=== PATIENT | female | born 1955 | race Caucasian/White ===

== ENCOUNTER 2021-05-08 12:42 | Emergency (ER) | payer OTHER, SELFPAY ==
--- NOTE | ~2021-05-08 | CT_ITS ---
EXAMINATION: CT brain wo con, CT cervical spine wo con EXAM DATE: 05/08/2021 14:07 INDICATION: Fall, head injury posteriorly on coffee table. Pain radiating to neck. TECHNIQUE: Spiral CT of the head was performed without contrast. Axial, coronal and sagittal images were reviewed. Spiral CT of the cervical spine was performed without contrast. Axial images were rev iewed. Coronal and sagittal reformatted images were also reviewed. The dose-length product (DLP) fo r this examination was 605.33 (accession [id number]), 330.95 (accession [id number]) mGy-cm. The exposure was tailored according to patient size, and iterative reconstruction (ASIR) was used as additional dose reduction technique. There is no prior study for comparison. FINDINGS: HEAD CT: There is no acute intraparenchymal hemorrhage. No evidence of intraparenchymal brain mass l esion. No evidence of acute infarction. There is no mass effect or midline shift. There is no obstru ctive hydrocephalus suspected. There are no extra-axial collections. There are no acute calvarial f ractures. The orbits are unremarkable. Soft tissue is unremarkable. The visualized sinuses and mas toid air cells are well aerated. Small lipoma adjacent to the right side of the torcula, not a clinic ally significant finding. CERVICAL CT: There is no evidence of acute cervical fracture. The odontoid process is intact. Pre- dens space is normal. Prevertebral soft tissue is normal. There are no soft tissue abnormalities id entified. There is no disc space widening or traumatic vertebral body subluxation suspected. There is mild cervical levoscoliosis. There is incomplete right posterior arch of C1. There is advanced lef t-sided mid cervical facet arthropathy. Mild to moderate reversal normal cervical lordosis. A detail ed level by level evaluation of spondylosis can be added as addendum if requested. IMPRESSION: 1. No acute intracranial findings or cervical fracture. 2. Chronic cervical findings. Reviewed, dictated and finalized at location A. IMPRESSION: 1. No acute intracranial findings or cervical fracture. 2. Chronic cervical findings.
[2021-05-08 12:48] VITALS: BP 179/71; PULSE 71; RESP 18; TEMP 36.4; O2SAT 100
--- NOTE | 2021-05-08 13:39 | ED.GENADULT ---
HPI - General Adult General Chief complaint: Fall Stated complaint: Fall Time Seen by Provider: 05/08/21 12:50 Source: patient Mode of arrival: ambulatory Limitations: no limitations History of Present Illness HPI narrative: Patient is here for evaluation of possible head injury. She was on a two-step stepladder today working at her home when she stepped back and missed the bottom step, fell backwards and hit the edge of a wooden coffee table. She now has mild pain in her posterior right scalp, pain in her right neck and behind her right eye. She denies any LOC, vision changes, she is not dizzy or nauseous. She is not on blood thinners. Related Data Home Medications Medication Instructions Recorded Confirmed metformin 500 mg PO DAILY 05/08/21 propranolol 80 mg PO DAILY 05/08/21 Allergies Allergy/AdvReac Type Severity Reaction Status Date / Time morphine Allergy Rash Verified 05/08/21 12:53 Penicillins Allergy Rash Verified 05/08/21 12:53 Review of Systems Review of Systems: All systems reviewed & are unremarkable except as noted in HPI and below [facility] Social History Social History (Updated 05/08/21 @ 14:43 by Melani Becker PA-C) Smoking status: Never smoker Alcohol intake: current Substance use: never Living arrangements: with family Exam Const: General: healthy appearing, no acute distress and alert Orientation/consciousness: patient oriented x3 HENMT: Head: normal to inspection, No palpable skull fracture present and contusion right occipital Ears: hearing grossly normal bilaterally and TM's normal bilaterally Eyes: Conjunctivae: conjunctivae normal Pupils: Equal, round and reactive pupils present EOM: EOMs intact bilaterally Neck: Neck: normal visual inspection and other (no carotid bruit) Resp: Effort & Inspection: normal respiratory effort Auscultation: clear to auscultation bilaterally Cardio: Rate: regular rate Rhythm: regular rhythm Skin: General skin exam: normal color Extrem: General: normal to inspection Psych: Mental Status: mental status grossly normal Course Vital Signs Vital signs: Vital Signs Temperature 36.4 C 05/08/21 12:48 Pulse Rate 71 05/08/21 12:48 Respiratory Rate 18 05/08/21 12:48 Blood Pressure 179/71 H 05/08/21 12:48 Pulse Oximetry 100 05/08/21 12:48 Temperature 36.4 C 05/08/21 12:48 Pulse Rate 71 05/08/21 12:48 Respiratory Rate 18 05/08/21 12:48 Blood Pressure 179/71 H 05/08/21 12:48 Pulse Oximetry 100 05/08/21 12:48 Medical Decision Making Vital Signs Vital Signs: Vital Signs Temperature 36.4 C 05/08/21 12:48 Pulse Rate 71 05/08/21 12:48 Respiratory Rate 18 05/08/21 12:48 Blood Pressure 179/71 H 05/08/21 12:48 Pulse Oximetry 100 05/08/21 12:48 Temperature 36.4 C 05/08/21 12:48 Pulse Rate 71 05/08/21 12:48 Respiratory Rate 18 05/08/21 12:48 Blood Pressure 179/71 H 05/08/21 12:48 Pulse Oximetry 100 05/08/21 12:48 Discharge Plan Discharge Clinical Impression: Fall (on) (from) other stairs and steps, initial encounter Contusion Qualifiers: Encounter type: initial encounter Contusion area: head Contusion of head detail: scalp Qualified Code(s): S00.03XA - Contusion of scalp, initial encounter Acute whiplash injury Qualifiers: Encounter type: initial encounter Qualified Code(s): S13.4XXA - Sprain of ligaments of cervical spine, initial encounter Patient Disposition: Home, Self-Care Condition: Stable Instructions: Antibiotic Form, Head Injury (ED), Cervical Sprain (ED) Additional Instructions: There is no evidence of bleed or fracture on your CTs. You most likely have a mild case of whiplash and a mild concussion. Recommend brain rest i.e. limited screen time and reading. Rest if you begin to headache. You may take ibuprofen or Tylenol for the pain. Please return to the emergency room should you have vision changes, no vomiting or dizziness. P
== END 2021-05-08 15:00 | disposition home or self-care (01) ==
PROVIDERS: Emergency Provider Emergency Medicine
DX: S00.03XA Contusion of scalp, initial encounter (principal); S13.4XXA Sprain of ligaments of cervical spine, initial encounter; W11.XXXA Fall on and from ladder, initial encounter
CPT/HCPCS: 70450; 72125; 99284

== ENCOUNTER → 2021-05-30 11:01 | Outpatient (CLI) | payer OTHER, SELFPAY ==
--- NOTE | ~2021-05-30 | XR_ITS ---
EXAMINATION: XR knee LT 3V DATE: 05/30/2021 12:01 INDICATION: Left knee injury and pain. TECHNIQUE: 3 views of left knee were obtained. COMPARISON: None. FINDINGS: Bone alignment is normal. No fracture. There is mild osteoarthritis of medial and lateral c ompartments and moderate osteoarthritis of patellofemoral compartment. There is a small knee joint ef fusion. IMPRESSION: 1. Moderate left knee osteoarthritis. 2. Small left knee joint effusion. Reviewed, dictated and finalized at location B. TEAM MEMBER
== END ==
PROVIDERS: PCP Internal Medicine; Visit Provider Internal Medicine
DX: M17.12 Unilateral primary osteoarthritis, left knee (principal); M25.462 Effusion, left knee
CPT/HCPCS: 73562

== ENCOUNTER → 2021-07-14 10:09 | Outpatient (CLI) | payer OTHER, SELFPAY ==
--- NOTE | ~2021-07-14 | XR_ITS ---
EXAMINATION: XR chest 2V DATE: 07/14/2021 10:49 INDICATION: Bronchitis. TECHNIQUE: Frontal and lateral views of the chest were obtained. COMPARISON: None. FINDINGS: The chest demonstrates clear lungs without pneumonia, pleural effusion, or pneumothorax. Th e heart size is normal. IMPRESSION: 1. No acute cardiopulmonary disease. Reviewed, dictated and finalized at location A. R DEALER
== END ==
PROVIDERS: PCP Internal Medicine; Visit Provider Internal Medicine
DX: J40 Bronchitis, not specified as acute or chronic (principal)
CPT/HCPCS: 71046

== ENCOUNTER → 2021-09-14 14:55 | Outpatient (CLI) | payer OTHER, SELFPAY ==
--- NOTE | ~2021-09-14 | DEXA_ITS ---
Bone Density Report Name: ANOOP LOMELI Age: 66 Sex: Female Ethnicity: White Date of : 1955 Indication: postmenopausal; screening for osteoporosis; hysterectomy; Referring Provider: Ashtyn, Letty Study: Bone densitometry was performed. Exam Date: September 14, 2021 Accession number: [id number] Bone Density: Region BMD T-score Z-score Classification AP Spine (L1-L4) 1.283 2.1 4.2 Normal Femoral Neck (Left) 0.835 -0.1 1.6 Normal Total Hip (Left) 1.006 0.5 1.9 Normal Femoral Neck (Right) 0.832 -0.2 1.6 Normal Total Hip (Right) 0.977 0.3 1.7 Normal Total Hip Mean 0.992 0.4 1.8 Normal World Health Organization criteria for BMD impression classify patients as: Normal (T-score at or above -1.0), Osteopenia (T-score between -1.0 and -2.5), or Osteoporosis (T-score at or below -2.5). 10-year Fracture Risk: FRAX not reported because: All T-scores for Spine Total, Hip Total, Femoral Neck at or above -1.0 Clinical Information Provided by Patient: Has used the following medications: Vitamin D Has the following medical conditions: Hysterectomy Patient maximum height was 51.0 Menopause Age: 30 No regular weight bearing exercise Drinks caffeinated beverages Onset of menses at age 9 Number of children 0 Impression: The patient has normal bone mass. Discussion: BONE DENSITY IS ABOVE THE MINIMUM DESIRABLE LEVEL AT ALL SKELETAL SITES TESTED. This patient?s bone mineral density is above the minimum desirable level (T-score -1.0 or better) at all sites measured. The patient should follow a healthful lifestyle (good nutrition with adequate calcium and vitamin D, and appropriate weight-bearing exercise). Follow-Up: Consider repeating this study in 5 years or sooner if there is some new clinical indication. Reported by: IRENE on 09/14/2021 3:39:00 PM. Reviewed, dictated and finalized at location ASelma SHIELDS
== END ==
PROVIDERS: PCP Internal Medicine; Visit Provider Internal Medicine
DX: Z78.0 Asymptomatic menopausal state (principal)
CPT/HCPCS: 77080

== ENCOUNTER 2022-04-05 15:14 | Outpatient (CLI) | payer OTHER, SELFPAY ==
--- NOTE | ~2022-04-05 | US_ITS ---
EXAMINATION: US venous doppler [facility] DATE: 04/05/2022 16:04 INDICATION: Left lower limb swelling TECHNIQUE: Morrissey scale images without and with compression and Doppler images of the left lower extrem ity veins were obtained. COMPARISON: None FINDINGS: The left common femoral vein, profunda femoral vein, femoral vein, popliteal vein, peroneal trunk, posterior tibial veins, and greater saphenous vein are patent. IMPRESSION: 1. Patent left lower extremity veins. No evidence of deep venous thrombosis. Reviewed, dictated and finalized at location A.
== END 2022-04-05 15:15 | disposition home or self-care (01) ==
PROVIDERS: PCP Internal Medicine
DX: R22.42 Localized swelling, mass and lump, left lower limb (principal); S80.12XA Contusion of left lower leg, initial encounter; X58.XXXA Exposure to other specified factors, initial encounter
CPT/HCPCS: 93971

== ENCOUNTER 2022-05-14 16:22 | Outpatient (CLI) | payer OTHER, SELFPAY ==
--- NOTE | ~2022-05-14 | MR_ITS ---
EXAMINATION: MR lumbar spine wo con DATE: 05/14/2022 17:39 INDICATION: Mass of spine. Low back pain. TECHNIQUE: Magnetic resonance imaging (MRI) of the lumbar spine was performed without intravenous con trast. Sequences included sagittal T2-weighted FSE, sagittal T2-weighted FS FSE, sagittal T1-weighted FSE, and axial T2-weighted FSE. COMPARISON: None FINDINGS: There is 16 degrees levoscoliosis of lumbar spine. There is 3 mm retrolisthesis of L2 on L3 . There is a hemangioma in T12 vertebral body. There is a benign bone island in L4. There are Schmorl 's nodes at multiple levels. There is mildly decreased disc height from T11-T12 through L1-L2, severe ly decreased disc height at L2-L3 and L3-L4, and mildly decreased disc height at L4-L5 and L5-S1. The distal spinal cord signal intensity is normal. The conus medullaris is at T11-T12. The following dis c levels are specifically discussed: L1-L2: The disc is bulging. There is severe bilateral facet joint osteoarthritis. There is mild bilat eral neural foraminal stenosis. There is mild central canal stenosis. L2-L3: The disc is bulging. There is severe right and moderate left facet joint osteoarthritis. There is mild bilateral neural foraminal stenosis. There is mild central canal stenosis. L3-L4: The disc is bulging. There is severe bilateral facet joint osteoarthritis. There is mild bilat eral neural foraminal stenosis. There is mild central canal stenosis. L4-L5: The disc is bulging and has an annular fissure. There is severe bilateral facet joint osteoart hritis. There is mild bilateral neural foraminal stenosis. There is mild central canal stenosis. L5-S1: The disc is mildly bulging. There is severe bilateral facet joint osteoarthritis. There is mil d bilateral neural foraminal stenosis. There is no central canal stenosis. IMPRESSION: 1. Severe lumbar spondylosis. 2. Lumbar levoscoliosis. Reviewed, dictated and finalized at location A. CISE PHYSIOLOGIST
== END 2022-05-14 16:23 | disposition home or self-care (01) ==
PROVIDERS: PCP Internal Medicine
DX: M89.8X8 Other specified disorders of bone, other site (principal); M54.50 Low back pain, unspecified; M47.896 Other spondylosis, lumbar region
CPT/HCPCS: 72148

== ENCOUNTER → 2022-09-04 15:50 | Outpatient (CLI) | payer OTHER, SELFPAY ==
--- NOTE | ~2022-09-04 | MM_ITS ---
EXAMINATION: MM screening timoteo BI w lynnette HISTORY: Screening mammogram TECHNIQUE: Craniocaudal and mediolateral oblique 3-D tomosynthesis images were obtained and synthetic 2-D images were generated. CAD analysis was submitted and interpreted. COMPARISON: No prior mammogram is available for comparison at this institution. BREAST PARENCHYMAL COMPOSITION: There are scattered areas of fibroglandular density. FINDINGS: History of bilateral implant removal and breast lift since December,. Bilateral cysts are noted in the posterior aspect of each breast. No suspicious mass, malignant calci fication, skin thickening or retraction of either breast is detected. IMPRESSION: 1. No mammographic evidence of malignancy. 2. Recommend routine screening mammography in one year. BI-RADS Category 2: Benign finding(s). Reviewed, dictated and finalized at location A. OLOGY SPECIAL PROCEDURE TECH
== END ==
PROVIDERS: PCP Internal Medicine; Visit Provider Internal Medicine
DX: Z12.31 Encounter for screening mammogram for malignant neoplasm of breast (principal)
CPT/HCPCS: 77063; 77067

== ENCOUNTER 2023-01-20 11:33 | Emergency (ER) | payer OTHER, SELFPAY ==
[2023-01-20 11:42] VITALS: BP 161/84; PULSE 73; RESP 16; TEMP 36.6; O2SAT 99
[2023-01-20 11:43] VITALS: BP 161/84; PULSE 73; RESP 16; TEMP 36.6; O2SAT 99
--- NOTE | 2023-01-20 11:57 | ED.EAR ---
HPI - Ear Problem General Chief complaint: Ear Stated complaint: EAR PROBLEMS Time Seen by Provider: 01/20/23 11:36 Source: patient Mode of arrival: ambulatory Limitations: no limitations History of Present Illness HPI Narrative: 67-year-old female presents to [facility] with complaints pain and itchiness to her left ear for the past 3 days. Patient reports the pain became more severe this morning. Patient reports that she has a sensation that her ear needs to pop. Patient reports that she just flew home from [place]. Patient reports history of ear infections. Patient reports that she normally takes Flonase daily but forgot to take it while she was on vacation in [place]. Patient denies fever, body aches, chills, nausea, vomiting or diarrhea. MD Complaint: ear pain Location: left ear Duration: constant Severity: mild Relieving factors: nothing Exacerbating factors: nothing Discharge from ear: Reports no Treatment prior to arrival: none Related Data Home Medications Medication Instructions Recorded Confirmed metformin 500 mg tablet 500 mg PO DAILY 05/08/21 06/08/22 propranolol 80 mg capsule,24 80 mg PO DAILY 05/08/21 06/08/22 hr,extended release amlodipine 5 mg tablet 5 mg PO DAILY 06/08/22 06/08/22 cholecalciferol (vitamin D3) 10 10 mcg PO DAILY 06/08/22 06/08/22 mcg (400 unit) chewable tablet (Kids Vitamin D3) metaxalone 800 mg tablet 800 mg PO BID 06/08/22 06/08/22 naltrexone 8 mg-bupropion 90 mg 1 tablet PO BID 06/08/22 06/08/22 tablet,extended release (Contrave) omeprazole 40 mg capsule,delayed 40 mg PO .prn 06/08/22 06/08/22 release fluticasone propionate 220 inhalation 01/20/23 01/20/23 mcg/actuation HFA aerosol inhaler (Flovent HFA) Allergies Allergy/AdvReac Type Severity Reaction Status Date / Time morphine Allergy Rash Verified 06/08/22 12:11 Penicillins Allergy Rash Verified 06/08/22 12:11 sertraline AdvReac Mild Nausea Verified 06/08/22 12:11 paxil AdvReac Mild Diarrhea Uncoded 06/08/22 12:11 Review of Systems Constitutional: Constitutional: Denies chills, Denies fatigue, Denies fever(s) and Denies weakness ENT: Denies dysphagia, Denies vertigo, Denies dizziness, Denies epistaxis, Denies nasal congestion and Denies sore throat Comments: Left ear itchiness and discomfort Cardiovascular: Cardiovascular: Denies chest pain Respiratory: Respiratory: Denies cough, Denies dyspnea and Denies wheezing Gastrointestinal: Gastrointestinal: Denies diarrhea, Denies nausea and Denies vomiting Genitourinary: Genitourinary: Denies dysuria Integumentary/Breasts: Skin/Breast: Denies rash Neurologic: Denies headache(s), Denies focal weakness and Denies numbness PMFSH Past Medical History Medical History Acute arthritis Allergy Anxiety Major depressive disorder Migraines Mixed hyperlipidemia Osteoarthritis Primary hypertension Skin cancer Spinal stenosis at L4-L5 level Stress incontinence of urine Urge incontinence of urine Surgical History Surgical History History of tonsillectomy S/p breast implant removal Family History Family History Other Breast cancer Dementia Emphysema lung Heart disease Social History Social History Smoking status: Never smoker Alcohol intake: current Substance use: never Substance use type: does not use Lack of Transportation: No Lack of Food: Never True Current Housing: Decline to Answer Concerned About Future Housing: No Difficulty Paying Gas/Electric Bills: No Difficulty Paying for Meds: No Currently Unemployed: No Difficulty w/ Childcare or Family Care: No Living arrangements: with family Comments At time of signature, I agree with nursing past medical, surgical, social and fa
== END 2023-01-20 12:12 | disposition home or self-care (01) ==
PROVIDERS: Emergency Provider Nurse Practitioner Family; PCP Internal Medicine
DX: H66.92 Otitis media, unspecified, left ear (principal); E78.2 Mixed hyperlipidemia; M19.90 Unspecified osteoarthritis, unspecified site; I10 Essential (primary) hypertension; M48.061 Spinal stenosis, lumbar region without neurogenic claudication
CPT/HCPCS: 99213; G0463

== ENCOUNTER 2024-05-15 09:22 | Outpatient (CLI) | payer OTHER, SELFPAY ==
--- NOTE | ~2024-05-15 | DEXA_ITS ---
Bone Density Report Name: ANOOP LOMELI Age: 69 Sex: Female Ethnicity: White Date of : 1955 Indication: postmenopausal; screening for osteoporosis; height loss; history of glucocorticoids; asthma or emphysema; hysterectomy; Referring Provider: KWESI, OJ Study: Bone densitometry was performed. Exam Date: May 15, 2024 Accession number: [id number] Bone Density: Region BMD T-score Z-score Classification AP Spine(L1-L4) 1.134 0.8 3.0 Normal Femoral Neck (Left) 0.820 -0.3 1.6 Normal Total Hip (Left) 1.154 1.7 3.3 Normal Femoral Neck (Right) 0.821 -0.3 1.6 Normal Total Hip (Right) 1.034 0.8 2.3 Normal Total Hip Mean 1.094 1.3 2.8 Normal World Health Organization criteria for BMD impression classify patients as: Normal (T-score at or above -1.0), Osteopenia (T-score between -1.0 and -2.5), or Osteoporosis (T-score at or below -2.5). 10-year Fracture Risk: FRAX not reported because: All T-scores for Spine Total, Hip Total, Femoral Neck at or above -1.0 Clinical Information Provided by Patient: Has taken Glucocorticoids Has used the following medications: multi vit Has the following medical conditions: Asthma or Emphysema, Hysterectomy Patient maximum height was 61 Menopause Age: 32 No regular weight bearing exercise Drinks caffeinated beverages Onset of menses at age 9 Number of children 0 Impression: The patient has normal bone mass. The patient has risk factors, including: history of glucocorticoid therapy. Discussion: BONE DENSITY IS ABOVE THE MINIMUM DESIRABLE LEVEL AT ALL SKELETAL SITES TESTED. This patient?s bone mineral density is above the minimum desirable level (T-score -1.0 or better) at all sites measured. The patient should follow a healthful lifestyle (good nutrition with adequate calcium and vitamin D, and appropriate weight-bearing exercise). Follow-Up: Consider repeating this study in 5 years or sooner if there is some new clinical indication. Reported by: IRENE on 05/15/2024 10:02:00 AM. Reviewed, dictated and finalized at location A. ALYSON
== END 2024-05-15 09:23 | disposition home or self-care (01) ==
LOC: ANHIMG 09:25
PROVIDERS: PCP Internal Medicine; Visit Provider Internal Medicine
DX: Z78.0 Asymptomatic menopausal state (principal)
CPT/HCPCS: 77080

== ENCOUNTER 2024-05-25 10:05 | Outpatient (CLI) | payer OTHER, SELFPAY ==
--- NOTE | ~2024-05-25 | MM_ITS ---
EXAMINATION: MM screening timoteo BI w lynnette HISTORY: Screening mammogram TECHNIQUE: Craniocaudal and mediolateral oblique 3-D tomosynthesis images were obtained and synthetic 2-D images were generated. CAD analysis was submitted and interpreted. COMPARISON: 09/04/2022 BREAST PARENCHYMAL COMPOSITION:Not Dense. There are scattered areas of fibroglandular density. FINDINGS: Stable area of distortion in the posterior, central left breast on CC view. No suspicious m ass, calcification, or architectural distortion are identified in either breast to suggest malignancy . There has been no suspicious interval change. IMPRESSION: No mammographic evidence of malignancy. Recommend routine screening mammography in one year. BI-RADS Category 2: Benign finding(s). Reviewed, dictated and finalized at location M. 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
== END 2024-05-25 10:06 | disposition home or self-care (01) ==
LOC: ANHIMG 10:07
PROVIDERS: PCP Internal Medicine; Visit Provider Internal Medicine
DX: Z12.31 Encounter for screening mammogram for malignant neoplasm of breast (principal)
CPT/HCPCS: 77063; 77067